=== PATIENT | female | born 1990 ===

== ENCOUNTER 2017-02-28 15:11 | Observation (INO) | payer MEDICAID, OTHER ==
[2017-02-28 15:23] VITALS: BMI 31.0
[2017-02-28] MEDS ORDERED: Sodium Chloride 0.9% 1,000 ML IV STA (15:33)
[2017-02-28 16:30] LABS: ADD MANUAL DIFF? NO
[2017-02-28 16:38] LABS: BASO # 0.02 K/mm3 (0.0-2.0); BASO % 0.4 % (0.0-3.0); EOS # 0.1 (0.0-0.7); EOS % 1.8 % (1.5-5.0); GRAN # 3.27 (1.4-6.5); GRAN % 59.2 % (50.0-68.0); LYMPH # 1.8 (1.2-3.4); LYMPH % 33.2 % (22.0-35.0); MEAN CELL VOLUME 62.2 fL (80.0-105.0); MEAN CORPUSCULAR HEMOGLOBIN 17.4 pg (25.0-35.0); MEAN CORPUSCULAR HGB CONC 27.9 g/dl (31.0-37.0); MEAN PLATELET VOLUME 9.1 fl (7.0-11.0); MONO # 0.3 (0.1-0.6); MONO % 5.4 % (1.0-6.0); PLATELET COUNT 392 10^3/uL (120.0-450.0); RED CELL DISTRIBUTION WIDTH 20.2 % (11.5-14.5); WHITE BLOOD COUNT 5.5 10^3/ul (4.5-11.0)
--- NOTE | 2017-02-28 16:48 | ED PDOC ---
Arrival/HPI - General Chief Complaint: Abnormal Labs Time Seen by Provider: 02/28/17 15:30 Historian: Patient - History of Present Illness Narrative History of Present Illness (Text): 02/28/17 15:30 A 26 year old female, whose past medical history includes gastric by pass surgery and B12 injection (last one being 8 months ago), is sent into the emergency department by PMD for anemia. Patient reports she has been feeling general tired and feels dizzy for a few seconds when standing up quickly. She denies any fever, hematuria, hematochezia, or any other complaints at this time. PMD: Dr. Mccracken Time/Duration: Other Symptom Onset: Sudden Symptom Course: Unchanged Quality: Other Activities at Onset: Rest Context: Home Past Medical History - Provider Review Nursing Documentation Reviewed: Yes - Tetanus Immunization Tetanus Immunization: Unknown - Cardiac Hx Cardiac Disorders: No - Pulmonary Hx Respiratory Disorders: No - Neurological Hx Neurological Disorder: No - HEENT Hx HEENT Disorder: No - Renal Hx Renal Disorder: No - Endocrine/Metabolic Hx Endocrine Disorders: No - Hematological/Oncological Hx Blood Disorders: Yes Hx Anemia: Yes Hx Blood Transfusions: No - Integumentary Hx Dermatological Disorder: No - Musculoskeletal/Rheumatological Hx Musculoskeletal Disorders: No - Gastrointestinal Hx Gastrointestinal Disorders: No - Genitourinary/Gynecological Hx Genitourinary Disorders: No - Psychiatric Hx Psychophysiologic Disorder: No Hx Substance Use: No - Surgical History Hx Gastric Bypass Surgery: Yes - Anesthesia Hx Anesthesia: Yes Hx Anesthesia Reactions: No Family/Social History - Physician Review Nursing Documentation Reviewed: Yes Family/Social History: Unknown Family HX Smoking Status: Never Smoked Hx Alcohol Use: No Hx Substance Use: No Allergies/Home Meds Allergies/Adverse Reactions: Allergies No Known Allergies Allergy (Verified 02/28/17 15:23) Home Medications: Home Meds Medication Instructions Recorded Confirmed No Known Home Med 02/28/17 02/28/17 Review of Systems - Physician Review All systems were reviewed & negative as marked: Yes - Review of Systems Constitutional: Fatigue. absent: Fevers Gastrointestinal: absent: Hematochezia Genitourinary Female: absent: Hematuria Neurological: Dizziness Physical Exam Vital Signs Reviewed: Yes Vital Signs Temp Pulse Resp BP Pulse Ox 02/28/17 18:20 80 16 144/90 99 02/28/17 17:00 82 18 137/91 H 98 02/28/17 15:11 98.8 F 93 H 17 147/96 H 100 Temperature: Afebrile Blood Pressure: Hypertensive Pulse: Regular Respiratory Rate: Normal Appearance: Positive for: Well-Appearing, Non-Toxic, Comfortable Pain Distress: None Mental Status: Positive for: Alert and Oriented X 3 - Systems Exam Head: Present: Atraumatic, Normocephalic Pupils: Present: PERRL Extroacular Muscles: Present: EOMI Conjunctiva: Present: Other (pale) Mouth: Present: Moist Mucous Membranes Neck: Present: Normal Range of Motion Respiratory/Chest: Present: Clear to Auscultation, Good Air Exchange. No: Respiratory Distress, Accessory Muscle Use Cardiovascular: Present: Regular Rate and Rhythm, Normal S1, S2. No: Murmurs Abdomen: Present: Normal Bowel Sounds. No: Tenderness, Distention, Peritoneal Signs Back: Present: Normal Inspection Upper Extremity: Present: Normal Inspection. No: Cyanosis, Edema Lower Extremity: Present: Normal Inspection. No: Edema Neurological: Present: GCS=15, CN II-XII Intact, Speech Normal Skin: Present: Warm, Dry, Pale. No: Rashes Psychiatric: Present: Alert, Oriented x 3, Normal Insight, Normal Concentration Medical Decision Making ED Course and Treatment: 02/28/17 15:30 Impression: A 26 year old female with anemia. Differential Diagnosis include but are not limited to: anemia Plan: -- Labs -- POC Urine -- IV Fluids -- Reassess and disposition Prior Visits: Notes and results from previous visits were reviewed. The patient last presented to the emergency department on 11/20/16 for evaluation of intermittent abdominal cramping. Progress Notes: - Lab Interpretations Lab Results: 02/28/17 16:10 02/28/17 16:10 Lab Results 02/28/17 16:10: Blood Type B POSITIVE, Antibody Screen Negative, BBK History Checked No verified bt 02/28/17 16:10: Sodium 141, Potassium 3.4 L, Chloride 107, Carbon Dioxide 25, Anion Gap 12, BUN 9, Creatinine 0.6, Est GFR ( Amer) > 60, Est GFR (Non- Af Amer) > 60, Random Glucose 80, Calcium 8.5, Total Bilirubin 0.4, AST 48 H, ALT 27, Alkaline Phosphatase 105, Troponin I < 0.01, Total Protein 6.9, Albumin 3.8, Globulin 3.2, Albumin/Globulin Ratio 1.2 02/28/17 16:10: PT 10.9, INR 1.01 02/28/17 16:10: WBC 5.5, RBC 3.68, Hgb 6.4 L*, Hct 22.9 L, MCV 62.2 L, MCH 17.4 L, MCHC 27.9 L, RDW 20.2 H, Plt Count 392, MPV 9.1, Gran % 59.2, Lymph % (Auto) 33.2, [place] % (Auto) 5.4, Eos % (Auto) 1.8, Baso % (Auto) 0.4, Gran # 3.27, Lymph # 1.8, [place] # 0.3, Eos # 0.1, Baso # 0.02 I have reviewed the lab results: Yes - Medication Orders Current Medication Orders: Potassium Chloride (Potassium Chloride Oral Soln) 40 meq PO Q4H EDUAR Stop: 03/01/17 03:46 Discontinued Medications Sodium Chloride (Sodium Chloride 0.9%) 1,000 mls @ 999 mls/hr IV .Q1H1M STA Stop: 02/28/17 16:33 Last Admin: 02/28/17 16:00 Dose: 999 mls/hr - Scribe Statement The provider has reviewed the documentation as recorded by the Meche Platt Provider Scribe Attestation: All medical record entries made by the Scribe were at my direction and personally dictated by me. I have reviewed the chart and agree that the record accurately reflects my personal performance of the history, physical exam, medical decision making, and the department course for this patient. I have also personally directed, reviewed, and agree with the discharge instructions and disposition. Disposition/Present on Arrival - Present on Arrival Any Indicators Present on Arrival: No History of DVT/PE: No History of Uncontrolled Diabetes: No Urinary Catheter: No History of Decub. Ulcer: No History Surgical Site Infection Following: Bariatric Surgery - Disposition Have Diagnosis and Disposition been Completed?: Yes Diagnosis: Symptomatic anemia Disposition: HOSPITALIZED Disposition Time: 18:00 Condition: STABLE Referrals: Mila Mccracken MD [Primary Care Provider] - Follow up with primary
[2017-02-28 16:49] LABS: INR 1.01 (0.93-1.08)
[2017-02-28 16:50] LABS: ALB/GLOB RATIO 1.2 (1.1-1.8); ALKALINE PHOSPHATASE 105 U/L (38-133); ALT/SGPT 27 U/L (7-56); AST/SGOT 48 U/L (15-39); BILIRUBIN,TOTAL 0.4 mg/dL (0.2-1.3); BLOOD UREA NITROGEN 9 mg/dL (7-21); CALCIUM 8.5 mg/dL (8.4-10.5); CARBON DIOXIDE 25 mmol/L (21-33); CHLORIDE 107 mmol/L (98-107); GFR AFRICAN-AMERICAN > 60; GLUCOSE,RANDOM 80 mg/dL (70-110); POTASSIUM 3.4 mmol/L (3.6-5.0); SODIUM 141 mmol/L (132-148); TOTAL PROTEIN 6.9 g/dL (5.8-8.3)
[2017-02-28 16:52] LABS: HEMATOCRIT 22.9 % (36.0-48.0)
[2017-02-28 17:04] LABS: TROPONIN I < 0.01 ng/mL
[2017-02-28 19:22] VITALS: O2SAT 99
--- NOTE | 2017-02-28 19:44 | CP.PCM.HP ---
<Romaine Borrego - Last Filed: 02/28/17 20:50> History of Present Illness - History of Present Illness History of Present Illness: Romaine Borrego D.O. PGY-1, Internal Medicine Resident, Night Float Admission CC: lightheadedness and fatigue for 3 days 26 year old female with a PMH of obesity s/p gastric bypass surgery and anemia who presents to [facility] ER on 02/28/17 with complaints of lightheadedness, dizziness, and fatigue for about 3 days. Patient states that the symptoms have been getting continually worse, are constant, not alleviated or aggravated by anything that she has noticed, have happened before in the past, and have gotten bad enough to worry her to go to an urgent care clinic. At said clinic patient was told she would have to come by ambulance due to low hemoglobin. Patient has been anemic in the past, specially after her gastric bypass and had regularly received both iron infusions and B12 shots. Patient admits that she has not been following up with these for the last 8 months due to having recently [place] here from the city and other life stressors. Patient started her period on 02/26/17 and she admits that it is heavy, about 6-8 pads a day, with lots of clots. Patient usually has heavy periods that last about 5+ days, sometimes up to 8, and her cycles can range from 21-42 days. Otherwise patient denies other symptoms except for those mentioned. PMH: as above PSH: gastric bypass, ex-lap after bypass, hernia repair SH: denies smoking, drug use, admits to social EtOH FH: mother has HTN, DM, and arthritis, father at 55 from metastatic colon CA Meds:denies Allergies: denies Present on Admission - Present on Admission Any Indicators Present on Admission: No Review of Systems - Constitutional Constitutional: Fatigue. absent: Anorexia, Chills, Fever - EENT Eyes: Blurred Vision. absent: Blind Spots, Diplopia Ears: absent: Decreased Hearing, Ear Discharge, Ear Pain Nose/Mouth/Throat: absent: Epistaxis, Nasal Congestion, Nasal Trauma - Cardiovascular Cardiovascular: Lightheadedness, Palpitations. absent: Chest Pain, Leg Edema, Pedal Edema - Respiratory Respiratory: absent: Cough, Dyspnea, Hemoptysis - Gastrointestinal Gastrointestinal: absent: Abdominal Pain, Constipation, Diarrhea, Melena, Nausea , Vomiting - Genitourinary Genitourinary: absent: Dysuria, Hematuria - Menstruation Menstruation: Cycle Variable, Menses Variable, Heavy Menses - Musculoskeletal Musculoskeletal: absent: Abnormal Gait, Arthralgias, Atrophy - Integumentary Integumentary: absent: Acne, Pruritus, Rash - Neurological Neurological: absent: Abnormal Gait, Abnormal Hearing, Weakness Past Patient History - Tetanus Immunizations Tetanus Immunization: Unknown - Past Social History Smoking Status: Never Smoked Chewing Tobacco Use: No Cigar Use: No Alcohol: Social Drugs: Denies - CARDIAC Hx Cardiac Disorders: No - PULMONARY Hx Respiratory Disorders: No - NEUROLOGICAL Hx Neurological Disorder: No - HEENT Hx HEENT Problems: No - RENAL Hx Chronic Kidney Disease: No - ENDOCRINE/METABOLIC Hx Endocrine Disorders: No - HEMATOLOGICAL/ONCOLOGICAL Hx Blood Disorders: Yes Hx Anemia: Yes Hx Blood Transfusions: No - INTEGUMENTARY Hx Dermatological Problems: No - MUSCULOSKELETAL/RHEUMATOLOGICAL Hx Musculoskeletal Disorders: No - GASTROINTESTINAL Hx Gastrointestinal Disorders: No - GENITOURINARY/GYNECOLOGICAL Hx Genitourinary Disorders: No - PSYCHIATRIC Hx Psychophysiologic Disorder: No Hx Substance Use: No - SURGICAL HISTORY Hx Gastric Bypass Surgery: Yes - ANESTHESIA Hx Anesthesia: Yes Hx Anesthesia Reactions: No Meds Allergies/Adverse Reactions: Allergies Allergy/AdvReac Type Severity Reaction Status Date / Time No Known Allergies Allergy Verified 02/28/17 15:23 Physical Exam - Constitutional Additional comments: well developed, pale young Marquise female resting in bed in NAD, mother at bedside - Head Exam Head Exam: ATRAUMATIC, NORMOCEPHALIC - Eye Exam Eye Exam: EOMI, PERRL. absent: Conjunctival injection, Scleral icterus Additional comments: conjunctival pallor - ENT Exam ENT Exam: Mucous Membranes Moist, Normal Oropharynx - Neck Exam Neck exam: Positive for: Full Rom. Negative for: Lymphadenopathy - Respiratory Exam Respiratory Exam: Clear to Auscultation Bilateral. absent: Rales, Rhonchi, Wheezes - Cardiovascular Exam Cardiovascular Exam: RRR, +S1, +S2. absent: Diastolic murmur, Gallop, Rubs, Systolic Murmur - GI/Abdominal Exam GI & Abdominal Exam: Normal Bowel Sounds, Soft. absent: Distended, Tenderness - Extremities Exam Extremities exam: Negative for: calf tenderness, joint swelling, pedal edema, tenderness - Back Exam Back exam: absent: muscle spasm, paraspinal tenderness, tenderness, vertebral tenderness - Neurological Exam Neurological exam: Alert, CN II-XII Intact, Oriented x3 - Skin Additional comments: pale, warm Results - Vital Signs Recent Vital Signs: Last Vital Signs Temp 98.8 F 02/28/17 15:11 Pulse 80 02/28/17 18:20 Resp 16 02/28/17 18:20 BP 144/90 02/28/17 18:20 Pulse Ox 99 02/28/17 18:20 - Labs Result Diagrams: 02/28/17 16:10 02/28/17 16:10 Labs: Laboratory Results - last 24 hr 02/28/17 02/28/17 02/28/17 16:10 16:10 16:10 WBC 5.5 RBC 3.68 Hgb 6.4 L* Hct 22.9 L MCV 62.2 L MCH 17.4 L MCHC 27.9 L RDW 20.2 H Plt Count 392 MPV 9.1 Gran % 59.2 Lymph % (Auto) 33.2 [place] % (Auto) 5.4 Eos % (Auto) 1.8 Baso % (Auto) 0.4 Gran # 3.27 Lymph # 1.8 [place] # 0.3 Eos # 0.1 Baso # 0.02 PT 10.9 INR 1.01 Sodium 141 Potassium 3.4 L Chloride 107 Carbon Dioxide 25 Anion Gap 12 BUN 9 Creatinine 0.6 Est GFR ( Amer) > 60 Est GFR (Non-Af Amer) > 60 Random Glucose 80 Calcium 8.5 Total Bilirubin 0.4 AST 48 H ALT 27 Alkaline Phosphatase 105 Troponin I < 0.01 Total Protein 6.9 Albumin 3.8 Globulin 3.2 Albumin/Globulin Ratio 1.2 Blood Type Antibody Screen BBK History Checked 02/28/17 16:10 WBC RBC Hgb Hct MCV MCH MCHC RDW Plt Count MPV Gran % Lymph % (Auto) [place] % (Auto) Eos % (Auto) Baso % (Auto) Gran # Lymph # Coal # Eos # Baso # PT INR Sodium Potassium Chloride Carbon Dioxide Anion Gap BUN Creatinine Est GFR ( Amer) Est GFR (Non-Af Amer) Random Glucose Calcium Total Bilirubin AST ALT Alkaline Phosphatase Troponin I Total Protein Albumin Globulin Albumin/Globulin Ratio Blood Type B POSITIVE Antibody Screen Negative BBK History Checked No verified bt Assessment & Plan - Assessment and Plan (Free Text) Assessment: 26 year old female with a PMH of obesity s/p gastric bypass surgery and anemia who presents with complaints of lightheadedness, dizziness, and fatigue for about 3 days. Plan: 1. 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 Hypokalemia Given KCl 40mEq po q4h x3 Recheck CMP in the AM 2. Family hx of colon CA Counseled patient that she needs to get her first colonospy at 43 rather than 48 due to her father getting colon CA at 55 Patient verbalized understanding and agreement DVT ppx: SCDs Patient was seen and examined at bedside and case was discussed at length with attending physician. - Date & Time Date: 02/28/17 Time: 20:00 <Kelly Constantino - Last Filed: 03/01/17 06:40> Results - Vital Signs Recent Vital Signs: Last Vital Signs Temp 98.2 F 03/01/17 06:09 Pulse 68 03/01/17 06:09 Resp 17 03/01/17 06:09 BP 117/79 03/01/17 06:09 Pulse Ox 99 02/28/17 18:20 - Labs Result Diagrams: 02/28/17 16:10 02/28/17 16:10 Labs: Laboratory Results - last 24 hr 02/28/17 20:20 Blood Type Confirm B POSITIVE Attending/Attestation - Attestation I have personally seen and examined this patient.: Yes I have fully participated in the care of the patient.: Yes I have reviewed all pertinent clinical information: Yes Notes (Text): 03/01/17 06:40 Patient was seen when she was in the ER. Agree with history, physical examination, assessment and plan.
[2017-02-28] MEDS: Potassium Chloride 40 mEq/30 ml LIQ UD PO SCH (20:18)
[2017-03-01] MEDS: Potassium Chloride 40 mEq/30 ml LIQ UD PO SCH ×2 (00:11→04:04)
[2017-03-01 08:30] VITALS: BP 123/78; PULSE 88; RESP 20; TEMP 97.8
[2017-03-01] MEDS ORDERED: Multivitamin With Minerals Tab PO SCH (10:00)
[2017-03-01 10:27] LABS: ADD MANUAL DIFF? NO
[2017-03-01 10:34] LABS: BASO # 0.03 K/mm3 (0.0-2.0); BASO % 0.6 % (0.0-3.0); EOS # 0.2 (0.0-0.7); GRAN # 3.04 (1.4-6.5); GRAN % 60.7 % (50.0-68.0); HEMATOCRIT 31.8 % (36.0-48.0); LYMPH # 1.4 (1.2-3.4); LYMPH % 28.3 % (22.0-35.0); MEAN CELL VOLUME 65.8 fL (80.0-105.0); MEAN CORPUSCULAR HEMOGLOBIN 19.7 pg (25.0-35.0); MEAN CORPUSCULAR HGB CONC 29.9 g/dl (31.0-37.0); MEAN PLATELET VOLUME 8.8 fl (7.0-11.0); MONO # 0.4 (0.1-0.6); MONO % 7.4 % (1.0-6.0); PLATELET COUNT 404 10^3/uL (120.0-450.0); RED CELL DISTRIBUTION WIDTH 22.5 % (11.5-14.5)
[2017-03-01 10:38] LABS: ALB/GLOB RATIO 1.2 (1.1-1.8); ALKALINE PHOSPHATASE 111 U/L (38-133); ALT/SGPT 29 U/L (7-56); AST/SGOT 23 U/L (15-39); BILIRUBIN,TOTAL 0.9 mg/dL (0.2-1.3); BLOOD UREA NITROGEN 6 mg/dL (7-21); CALCIUM 9.2 mg/dL (8.4-10.5); CARBON DIOXIDE 25 mmol/L (21-33); CHLORIDE 107 mmol/L (98-107); GFR AFRICAN-AMERICAN > 60; GLUCOSE,RANDOM 80 mg/dL (70-110); POTASSIUM 4.5 mmol/L (3.6-5.0); SODIUM 139 mmol/L (132-148); TOTAL PROTEIN 7.5 g/dL (5.8-8.3)
[2017-03-01 10:48] LABS: IRON 39 ug/dL (45-180)
--- NOTE | 2017-03-01 12:46 | CP.PCM.DIS ---
<Arianna Suarez - Last Filed: 03/01/17 14:01> Provider - Provider Date of Admission: 02/28/17 19:05 Attending physician: Raven Winter MD Primary care physician: Mila Mccracken MD Time Spent in preparation of Discharge (in minutes): 45 Diagnosis - Discharge Diagnosis (1) Symptomatic anemia Status: Chronic (2) History of gastric bypass Status: Chronic Hospital Course - Lab Results Lab Results: Most Recent Lab Values WBC 5.0 10^3/ul (4.5-11.0) 03/01/17 10:00 RBC 4.83 10^6/uL (3.5-6.1) 03/01/17 10:00 Hgb 9.5 gm/dL (12.0-16.0) L 03/01/17 10:00 Hct 31.8 % (36.0-48.0) L 03/01/17 10:00 MCV 65.8 fL (80.0-105.0) L 03/01/17 10:00 MCH 19.7 pg (25.0-35.0) L 03/01/17 10:00 MCHC 29.9 g/dl (31.0-37.0) L 03/01/17 10:00 RDW 22.5 % (11.5-14.5) H 03/01/17 10:00 Plt Count 404 10^3/uL (120.0-450.0) 03/01/17 10:00 MPV 8.8 fl (7.0-11.0) 03/01/17 10:00 Gran % 60.7 % (50.0-68.0) 03/01/17 10:00 Lymph % (Auto) 28.3 % (22.0-35.0) 03/01/17 10:00 [place] % (Auto) 7.4 % (1.0-6.0) H 03/01/17 10:00 Eos % (Auto) 3.0 % (1.5-5.0) 03/01/17 10:00 Baso % (Auto) 0.6 % (0.0-3.0) 03/01/17 10:00 Gran # 3.04 (1.4-6.5) 03/01/17 10:00 Lymph # 1.4 (1.2-3.4) 03/01/17 10:00 [place] # 0.4 (0.1-0.6) 03/01/17 10:00 Eos # 0.2 (0.0-0.7) 03/01/17 10:00 Baso # 0.03 K/mm3 (0.0-2.0) 03/01/17 10:00 PT 10.9 Seconds (9.9-11.8) 02/28/17 16:10 INR 1.01 (0.93-1.08) 02/28/17 16:10 Sodium 139 mmol/L (132-148) 03/01/17 10:00 Potassium 4.5 mmol/L (3.6-5.0) 03/01/17 10:00 Chloride 107 mmol/L (98-107) 03/01/17 10:00 Carbon Dioxide 25 mmol/L (21-33) 03/01/17 10:00 Anion Gap 12 (10-20) 03/01/17 10:00 BUN 6 mg/dL (7-21) L 03/01/17 10:00 Creatinine 0.6 mg/dL (0.5-1.4) 03/01/17 10:00 Est GFR ( Amer) > 60 03/01/17 10:00 Est GFR (Non-Af Amer) > 60 03/01/17 10:00 Random Glucose 80 mg/dL (70-110) 03/01/17 10:00 Calcium 9.2 mg/dL (8.4-10.5) 03/01/17 10:00 Iron 39 ug/dL (45-180) L 03/01/17 10:00 TIBC 512 ug/dL (265-497) H 03/01/17 10:00 % Saturation 8 % (20-55) L 03/01/17 10:00 Total Bilirubin 0.9 mg/dL (0.2-1.3) 03/01/17 10:00 AST 23 U/L (15-39) 03/01/17 10:00 ALT 29 U/L (7-56) 03/01/17 10:00 Alkaline Phosphatase 111 U/L (38-133) 03/01/17 10:00 Troponin I < 0.01 ng/mL 02/28/17 16:10 Total Protein 7.5 g/dL (5.8-8.3) 03/01/17 10:00 Albumin 4.1 g/dL (3.0-4.8) 03/01/17 10:00 Globulin 3.4 gm/dL 03/01/17 10:00 Albumin/Globulin Ratio 1.2 (1.1-1.8) 03/01/17 10:00 Blood Type B POSITIVE 02/28/17 16:10 Blood Type Confirm B POSITIVE 02/28/17 20:20 Antibody Screen Negative 02/28/17 16:10 Crossmatch See Detail 02/28/17 16:10 BBK History Checked No verified bt 02/28/17 16:10 - Hospital Course Hospital Course: 26 year old female with a PMH of obesity s/p gastric bypass surgery and anemia who presents to [facility] ER on 02/28/17 with complaints of lightheadedness, dizziness, and fatigue for about 3 days. Patient states that the symptoms have been getting continually worse, are constant, not alleviated or aggravated by anything that she has noticed, have happened before in the past, and have gotten bad enough to worry her to go to an urgent care clinic. At said clinic patient was told she would have to come by ambulance due to low hemoglobin. Patient has been anemic in the past, specially after her gastric bypass and had regularly received both iron infusions and B12 shots. Patient admits that she has not been following up with these for the last 8 months due to having recently [place] here from the city and other life stressors. Patient started her period on 02/26/17 and she admits that it is heavy, about 6-8 pads a day, with lots of clots. Patient usually has heavy periods that last about 5+ days, sometimes up to 8, and her cycles can range from 21-42 days. Otherwise patient denies other symptoms except for those mentioned. Patient's Hgb on admission was 6.4, MCV 62.2 Hct 22.9. Patient was given 2 units of blood. Her hgb improved to 9.5. Her symptoms also improved. Patient was also given iron infusion one time before discharge. Iron studies showed low iron levels and low % saturation and high TIBC. The rest of the anemia work up was pending. Will follow up and call patient with results. Patient is to follow up with PMD, Dr. Mccracken upon discharge. Appointment made for patient on 03/05/[address] Mccracken. Patient is discharged on the following medications: Ferrous Sulfate 325 mg po qd #30, Colace 100 mg PO BID prn constipation #30. Scripts are sent to [facility] in [facility]. Instructed patient on importance of having an iron rich diet. Also had a long discussion with patient about the risks and benefits of receiving multiple transfusions. Please see MAR for full details. - Date & Time of H&P Date of H&P: 03/01/17 Time of H&P: 12:45 Discharge Exam - Head Exam Head Exam: ATRAUMATIC, NORMOCEPHALIC - Eye Exam Eye Exam: EOMI Pupil Exam: PERRL - ENT Exam ENT Exam: Mucous Membranes Moist - Respiratory Exam Respiratory Exam: Clear to PA & Lateral, NORMAL BREATHING PATTERN. absent: Rales, Rhonchi, Wheezes - Cardiovascular Exam Cardiovascular Exam: REGULAR RHYTHM, +S1, +S2. absent: Diastolic murmur, Gallop , Rubs, Systolic Murmur - GI/Abdominal Exam GI & Abdominal Exam: Normal Bowel Sounds, Soft, Unremarkable. absent: Distended , Firm, Guarding, Rigid, Tenderness - Extremities Exam Additional comments: no edema or tenderness - Neurological Exam Neurological exam: Alert, Oriented x3 - Psychiatric Exam Psychiatric exam: Normal Affect, Normal Mood - Skin Skin Exam: Dry, Intact, Normal Color, Warm Discharge Plan - Discharge Medications Prescriptions: Docusate Sodium [Colace] 100 mg PO BID PRN #30 capsule PRN Reason: Constipation Ferrous Sulfate 325 mg PO DAILY #30 tab - Follow Up Plan Condition: STABLE Disposition: HOME/ ROUTINE Instructions: Iron Rich Diet (DC), Iron Deficiency Anemia (DC), Vitamin B12 Deficiency (GEN) Additional Instructions: Patient is to follow up with Dr. Nawaf LEON upon discharge. Appointment made for patient on 03/05/[address] Mccracken. Patient is discharged on the following medications: Ferrous Sulfate 325 mg po qd #30, Colace 100 mg PO BID prn constipation #30. Scripts are sent to [facility] in [facility]. Instructed patient on importance of having an iron rich diet. Referrals: Mila Mccracken MD [Primary Care Provider] - <Raven Winter - Last Filed: 03/01/17 17:30> Provider - Provider Date of Admission: 02/28/17 19:05 Attending physician: Raven Winter MD Primary care physician: Mila Mccracken MD Hospital Course - Lab Results Lab Results: Most Recent Lab Values WBC 5.0 10^3/ul (4.5-11.0) 03/01/17 10:00 RBC 4.83 10^6/uL (3.5-6.1) 03/01/17 10:00 Hgb 9.5 gm/dL (12.0-16.0) L 03/01/17 10:00 Hct 31.8 % (36.0-48.0) L 03/01/17 10:00 MCV 65.8 fL (80.0-105.0) L 03/01/17 10:00 MCH 19.7 pg (25.0-35.0) L 03/01/17 10:00 MCHC 29.9 g/dl (31.0-37.0) L 03/01/17 10:00 RDW 22.5 % (11.5-14.5) H 03/01/17 10:00 Plt Count 404 10^3/uL (120.0-450.0) 03/01/17 10:00 MPV 8.8 fl (7.0-11.0) 03/01/17 10:00 Gran % 60.7 % (50.0-68.0) 03/01/17 10:00 Lymph % (Auto) 28.3 % (22.0-35.0) 03/01/17 10:00 [place] % (Auto) 7.4 % (1.0-6.0) H 03/01/17 10:00 Eos % (Auto) 3.0 % (1.5-5.0) 03/01/17 10:00 Baso % (Auto) 0.6 % (0.0-3.0) 03/01/17 10:00 Gran # 3.04 (1.4-6.5) 03/01/17 10:00 Lymph # 1.4 (1.2-3.4) 03/01/17 10:00 [place] # 0.4 (0.1-0.6) 03/01/17 10:00 Eos # 0.2 (0.0-0.7) 03/01/17 10:00 Baso # 0.03 K/mm3 (0.0-2.0) 03/01/17 10:00 Retic Count 0.50 % (0.5-1.5) 03/01/17 10:00 PT 10.9 Seconds (9.9-11.8) 02/28/17 16:10 INR 1.01 (0.93-1.08) 02/28/17 16:10 Sodium 139 mmol/L (132-148) 03/01/17 10:00 Potassium 4.5 mmol/L (3.6-5.0) 03/01/17 10:00 Chloride 107 mmol/L (98-107) 03/01/17 10:00 Carbon Dioxide 25 mmol/L (21-33) 03/01/17 10:00 Anion Gap 12 (10-20) 03/01/17 10:00 BUN 6 mg/dL (7-21) L 03/01/17 10:00 Creatinine 0.6 mg/dL (0.5-1.4) 03/01/17 10:00 Est GFR ( Amer) > 60 03/01/17 10:00 Est GFR (Non-Af Amer) > 60 03/01/17 10:00 Random Glucose 80 mg/dL (70-110) 03/01/17 10:00 Calcium 9.2 mg/dL (8.4-10.5) 03/01/17 10:00 Iron 39 ug/dL (45-180) L 03/01/17 10:00 TIBC 512 ug/dL (265-497) H 03/01/17 10:00 % Saturation 8 % (20-55) L 03/01/17 10:00 Ferritin 3.8 ng/mL 03/01/17 10:00 Total Bilirubin 0.9 mg/dL (0.2-1.3) 03/01/17 10:00 AST 23 U/L (15-39) 03/01/17 10:00 ALT 29 U/L (7-56) 03/01/17 10:00 Alkaline Phosphatase 111 U/L (38-133) 03/01/17 10:00 Troponin I < 0.01 ng/mL 02/28/17 16:10 Total Protein 7.5 g/dL (5.8-8.3) 03/01/17 10:00 Albumin 4.1 g/dL (3.0-4.8) 03/01/17 10:00 Globulin 3.4 gm/dL 03/01/17 10:00 Albumin/Globulin Ratio 1.2 (1.1-1.8) 03/01/17 10:00 Vitamin B12 651 pg/mL (239-931) 03/01/17 10:00 Blood Type B POSITIVE 02/28/17 16:10 Blood Type Confirm B POSITIVE 02/28/17 20:20 Antibody Screen Negative 02/28/17 16:10 Crossmatch See Detail 02/28/17 16:10 BBK History Checked No verified bt 02/28/17 16:10 Attending/Attestation - Attestation I have personally seen and examined this patient.: Yes I have fully participated in the care of the patient.: Yes I have reviewed all pertinent clinical information, including history, physical exam and plan: Yes Notes (Text): 03/01/17 17:28 attending note; Patient seen and examined with resident. Patient is a 26 year old female with a PMH of obesity s/p gastric bypass surgery and anemia who presents to [facility] ER on 02/28/17 with complaints of lightheadedness, dizziness, and fatigue for about 3 days. found to have hemoglobin of 6.4. Status post 2 units PRBC trasfusion. 1 dose of IV iron given. Vitamin B12 injection given. Patient lost follow-up post gastric bypass surgery. dietary education given. Needs outpatient iron therapy. Follow-up with [facility] for the treatment of menorrhagia. patient will be discharged home. diagnosis; Iron deficiency anemia Status post blood transfusion gastric bypass surgery B12 deficiency Menorrhagia
[2017-03-01 17:35] LABS: FOLATE 5.9 ng/mL
[2017-03-02 08:59] LABS: HEMATOCRIT 31.9 % (35.0-45.0); HEMOGLOBIN 9.3 g/dL (11.7-15.5); RDW 27.2 % (11.0-15.0)
[2017-03-03] MEDS ORDERED: Pneumococcal 23-Valent Vaccine IM ONE (10:00)
[2017-03-04 07:47] LABS: HEMOGLOBIN F <1.0 Percent (<2.0)
== END 2017-03-01 15:34 | disposition home or self-care (01) ==
LOC: ED 15:11 → ERH 19:05 → 5RSO 22:12
PROVIDERS: ADMIT Internal Medicine; ATTEND Internal Medicine
DX: D50.9 Iron deficiency anemia, unspecified (principal); R42 Dizziness and giddiness; R53.83 Other fatigue; N92.0 Excessive and frequent menstruation with regular cycle; E53.8 Deficiency of other specified B group vitamins; E66.9 Obesity, unspecified; E87.6 Hypokalemia; Z98.84 Bariatric surgery status; Z68.31 Body mass index [BMI] 31.0-31.9, adult; Z83.3 Family history of diabetes mellitus; Z82.49 Family history of ischemic heart disease and other diseases of the circulatory system; Z80.0 Family history of malignant neoplasm of digestive organs
CPT/HCPCS: 36415; 36430; 80053; 82607; 82728; 82746; 83021; 83540; 83550; 84484; 85014; 85018; 85025; 85041; 85044; 85610; 86850; 86900; 86920; 96361; 96365; 96372; 99285; G0378; J1756; J3420; J3480; J7040; P9016